=== PATIENT | male | born 1990 | race Caucasian/White ===

== ENCOUNTER 2016-12-09 18:59 | Emergency (ER) | payer SELFPAY ==
--- NOTE | 2016-12-09 20:08 | ED ---
General Adult HPI - General Chief complaint: Chest Pain Stated complaint: lung pain/hip pain Time Seen by Provider: 12/09/16 19:27 Source: patient, RN notes reviewed, old records reviewed Mode of arrival: ambulatory Limitations: no limitations - History of Present Illness Initial comments: If complaint history of present is a 26-year-old male who reports for one week and having discomfort to the right side of his chest. Pain increases with movement of the right arm palpation of the chest deep breathing and coughing. Denies any fever. - Related Data Previous Rx's Medication Instructions Recorded Ibuprofen [Motrin] 800 mg PO Q8HR PRN #20 tab 12/09/16 Allergies Allergy/AdvReac Type Severity Reaction Status Date / Time No Known Allergies Allergy Verified 12/09/16 19:27 Review of Systems ROS Statement: Those systems with pertinent positive or pertinent negative responses have been documented in the HPI. Review of systems. No headache or visual acuity changes no neck pain. Complains of discomfort to the right side of his chest which is reproducible with deep breathing twisting turning coughing and moving his right arm and palpation over the area. All systems are reviewed. Past medical problems episode costochondritis one year ago. Surgeries none. Family history hypertension and heart disease. The patient denies ALLERGIES she does smoke strongly encouraged to stop the drinks alcohol socially. ROS Other: All systems not noted in ROS Statement are negative. Past Medical History Past Medical History: No Reported History History of Any Multi-Drug Resistant Organisms: None Reported Past Surgical History: No Surgical Hx Reported Past Psychological History: ADD/ADHD Smoking Status: Current every day smoker Past Alcohol Use History: None Reported Past Drug Use History: None Reported General Exam - General Exam Comments Initial Comments: General: The patient is awake and alert, in no distress, and does not appear acutely ill. Complains of right sided chest wall pain. Reproducible by twisting turning deep breathing coughing and palpation. Vital signs show torus 98.0 pulse 87 return rate 18 pulse ox 90% room air blood pressure 123/73. 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 Re-creating motion does re-create the discomfort yesterday. Eye: Pupils are equal, round and reactive to light, extra-ocular movements are intact ; there is normal conjunctiva bilaterally. No signs of icterus. Ears, nose, mouth and throat: There are moist mucous membranes and no oral lesions. Neck: The neck is supple, there is no tenderness , no anterior cervical lymphadenopathy. Cardiovascular: There is a regular rate and rhythm. No murmur, rub or gallop is appreciated. Respiratory: Lungs are clear to auscultation, respirations are non-labored, breath sounds are equal. No wheezes, stridor, rales, or rhonchi. Deep breathing does cause discomfort to the anterior chest wall. Palpation of the right side of the chest causes pain movement of the pectoralis muscles on the right side causes pain. Gastrointestinal: Soft, non-distended, non-tender abdomen without masses or organomegaly noted. There is no rebound or guarding present. No CVA tenderness. Bowel sounds are unremarkable. Back: There is no tenderness to palpation in the midline. There is no obvious deformity. No rashes noted. Lung the right lower aspect of his back and hip area. The patient reports after chloral going through a vent then had fiberglass came out with a dozen small spots that could be local areas of irritation or even bedbug bites. This is not close to where his upper chest wall pain is Musculoskeletal: Normal ROM, no tenderness, There is no pedal edema. There is no calf tenderness or swelling. Sensation intact. Pulses equal bilaterally 2+. Neurological: No neuro deficits. Skin: Skin is warm and dry and no rashes or lesions are noted. We did discuss shingles. Limitations: no limitations Course Vital Signs 12/09/16 19:00 Temperature 98.0 F Pulse Rate 87 Respiratory 18 Rate Blood Pressure 123/73 O2 Sat by Pulse 98 Oximetry Medical Decision Making - Medical Decision Making Medical decision making; X-ray of the chest was done AP and lateral views. And reviewed by me. No acute bony irregularity appreciated. Lung markings are clear. Heart size normal limits. Diaphragm clear. No evidence of pneumothorax or pulmonary congestion or consolidation. Awaiting radiologist's final impression. The patient be treated with ibuprofen for costochondritis. Disposition Clinical Impression: Costochondritis Disposition: HOME SELF-CARE Condition: Fair Instructions: Costochondritis (ED) Additional Instructions: We discussed costochondritis and pleurisy. The discomfort is reproducible by twisting turning and palpation as well as coughing and deep breathing. The patient be placed on ibuprofen 800 mg 1 every 8 hours. Off work for the next 24 hours told take medication with food. Stop smoking. Prescriptions: Ibuprofen [Motrin] 800 mg PO Q8HR PRN #20 tab PRN Reason: Pain Referrals: None,Stated [Primary Care Provider] - 1-2 days Time of Disposition: 20:22
--- NOTE | 2016-12-09 20:20 | XR ---
EXAMINATION TYPE: XR chest 2V DATE OF EXAM: 12/09/2016 8:13 PM COMPARISON: 06/09/2015 HISTORY: Chest pain TECHNIQUE: Frontal and lateral views of the chest are obtained. FINDINGS: Heart and mediastinum are normal. Lungs are clear. Diaphragm is normal. Bony thorax and so ft tissues appear normal. IMPRESSION: Normal chest. No change.
[2016-12-09] MEDS ORDERED: IBUPROFEN 600 MG STARTER PACK 4 TAB BTL PO STA (20:21)
[2016-12-09 20:35] VITALS: BP 136/75; PULSE 80; RESP 16; TEMP 97.9
== END 2016-12-09 20:35 | disposition home or self-care (01) ==
LOC: EC 18:59
DX: M94.0 Chondrocostal junction syndrome [Tietze] (principal); F17.200 Nicotine dependence, unspecified, uncomplicated
CPT/HCPCS: 71020; 99284

== ENCOUNTER 2017-01-19 17:03 | Emergency (ER) | payer SELFPAY ==
[2017-01-19 17:08] VITALS: BP 119/79; PULSE 90; RESP 18; TEMP 97
--- NOTE | 2017-01-19 17:37 | ED ---
General Adult HPI - General Chief complaint: Recheck/Abnormal Lab/Rx Stated complaint: rib pain Time Seen by Provider: 01/19/17 17:10 Source: patient, RN notes reviewed Mode of arrival: ambulatory Limitations: no limitations - History of Present Illness Initial comments: 26-year-old male presents emergency Department chief complaint right-sided chest wall pain. Patient states he had this a month ago and states that despite became back area patient states that he does do a lot of lifting, moving his work. Patient states that it is worse with movement this time states that it feels deep on his right side. States she does have pain with deep inspiration denies any resting shortness of breath. Patient denies any palpitations. Patient denies fever, chills, cold like symptoms, rash. Patient had no nausea vomiting diarrhea constipation. Denies any abdominal pain - Related Data Previous Rx's Medication Instructions Recorded methylPREDNISolone [Medrol Dose 4 mg PO DIRECTED #1 pack 01/19/17 Pack] Allergies Allergy/AdvReac Type Severity Reaction Status Date / Time No Known Allergies Allergy Verified 01/19/17 17:36 Review of Systems ROS Statement: Those systems with pertinent positive or pertinent negative responses have been documented in the HPI. ROS Other: All systems not noted in ROS Statement are negative. Past Medical History Past Medical History: No Reported History History of Any Multi-Drug Resistant Organisms: None Reported Past Surgical History: No Surgical Hx Reported Past Psychological History: ADD/ADHD Smoking Status: Current every day smoker Past Alcohol Use History: None Reported Past Drug Use History: None Reported General Exam General appearance: alert, in no apparent distress Head exam: Present: atraumatic, normocephalic, normal inspection Neck exam: Present: normal inspection, full ROM. Absent: tenderness, meningismus, lymphadenopathy Respiratory exam: Present: normal lung sounds bilaterally, chest wall tenderness (Moderate anterior right chest wall tenderness there is no rashes noted no obvious deformity pain was increased with right arm movement). Absent : respiratory distress, wheezes, rales, rhonchi, stridor Cardiovascular Exam: Present: regular rate, normal rhythm, normal heart sounds. Absent: systolic murmur, diastolic murmur, rubs, gallop, clicks Extremities exam: Present: normal inspection, full ROM, normal capillary refill. Absent: tenderness, pedal edema, joint swelling, calf tenderness Back exam: Present: full ROM. Absent: tenderness, paraspinal tenderness, vertebral tenderness Neurological exam: Present: alert, oriented X3, CN II-XII intact, reflexes normal. Absent: motor sensory deficit Skin exam: Present: warm, dry, intact, normal color. Absent: rash Course Vital Signs 01/19/17 17:04 Temperature 97.0 F L Pulse Rate 90 Respiratory 18 Rate Blood Pressure 119/79 O2 Sat by Pulse 97 Oximetry Medical Decision Making - Medical Decision Making 26-year-old male present emergency from for right side chest wall pain. It is reproducible worse with movement. States most likely related to his job. Patient was started on surgery at this time to see if it improves his symptoms. Return parameters were discussed. Disposition Clinical Impression: Chest wall pain Disposition: HOME SELF-CARE Condition: Stable Instructions: Chest Wall Pain (ED) Additional Instructions: Please return to the Emergency Department if symptoms worsen or any other concerns. Prescriptions: methylPREDNISolone [Medrol Dose Pack] 4 mg PO DIRECTED #1 pack Time of Disposition: 18:00
--- NOTE | 2017-01-19 17:55 | XR ---
EXAMINATION TYPE: XR chest 2V DATE OF EXAM: 01/19/2017 5:40 PM COMPARISON: 12/09/2016 HISTORY: Shortness of breath TECHNIQUE: Frontal and lateral views of the chest are obtained. FINDINGS: There is no focal air space opacity, pleural effusion, or pneumothorax seen. The cardiac silhouette size is within normal limits. The osseous structures are intact. IMPRESSION: No acute cardiopulmonary process.
== END 2017-01-19 18:20 | disposition home or self-care (01) ==
LOC: EC 17:03
DX: R07.89 Other chest pain (principal); F17.200 Nicotine dependence, unspecified, uncomplicated
CPT/HCPCS: 71020; 99283

== ENCOUNTER 2017-02-09 20:54 | Emergency (ER) | payer SELFPAY ==
[2017-02-09 21:17] VITALS: BP 149/71; PULSE 107; RESP 18; TEMP 98
--- NOTE | 2017-02-09 21:31 | ED ---
General Adult HPI - General Chief complaint: Dental/Oral Stated complaint: Dental Pain Time Seen by Provider: 02/09/17 21:19 Source: patient, RN notes reviewed Mode of arrival: ambulatory Limitations: no limitations - History of Present Illness Initial comments: This is a 26-year-old male who presents with dental pain 10 days. Patient states he has pain to an upper left tooth and also to a bottom right tooth. Patient denies any facial swelling but states pain radiates to his ears. Patient denies any drainage, nausea/vomiting/diarrhea, fever/chills. Patient has not taken anything for the pain and patient has not been on any recent antibiotics. Patient states he does not have a dentist.Patient denies any recent fever, chills, shortness breath, chest pain, abdominal pain, nausea/ vomiting/diarrhea, back pain, numbness, tingling, hematuria, headache, or visual changes, or any other complaints. - Related Data Previous Rx's Medication Instructions Recorded Penicillin V Potassium [Pen Vee K] 500 mg PO QID 7 Days 02/09/17 traMADol HCL [Ultram] 50 mg PO Q6HR #12 tab 02/09/17 Allergies Allergy/AdvReac Type Severity Reaction Status Date / Time No Known Allergies Allergy Verified 02/09/17 21:17 Review of Systems ROS Statement: Those systems with pertinent positive or pertinent negative responses have been documented in the HPI. ROS Other: All systems not noted in ROS Statement are negative. Past Medical History Past Medical History: No Reported History History of Any Multi-Drug Resistant Organisms: None Reported Past Surgical History: No Surgical Hx Reported Past Psychological History: ADD/ADHD Smoking Status: Current every day smoker Past Alcohol Use History: None Reported Past Drug Use History: None Reported General Exam - General Exam Comments Initial Comments: General: The patient is awake and alert, in no distress, and does not appear acutely ill. Eye: Pupils are equal, round and reactive to light, extra-ocular movements are intact. No pain with extraocular movements. No nystagmus. There is normal conjunctiva bilaterally. No signs of icterus. Ears: TMs pink and pearly with intact cone of light bilaterally. Normal external ear canals Nose: Nasal turbinates pink and moist Mouth and throat: Poor dental hygiene. There is tenderness to palpation of tooth #31 and tooth #12. There is no surrounding erythema, swelling or purulent drainage. There are moist mucous membranes and no oral lesions. Neck: Submandibular lymph nodes present. The neck is supple, there is no tenderness or JVD. Cardiovascular: There is a regular rate and rhythm. No murmur, rub or gallop is appreciated. Respiratory: Lungs are clear to auscultation, respirations are non-labored, breath sounds are equal. No wheezes, stridor, rales, or rhonchi. Musculoskeletal: Normal ROM, no tenderness. Strength 5/5. Sensation intact. Radial pulses equal bilaterally 2+. Neurological: A&O x 3. CN II-XII intact, There are no obvious motor or sensory deficits. Coordination appears grossly intact. Speech is normal. Skin: Skin is warm and dry and no rashes or lesions are noted. Psychiatric: Cooperative, appropriate mood & affect, normal judgment. Limitations: no limitations Course Vital Signs 02/09/17 21:13 Temperature 98.0 F Pulse Rate 107 H Respiratory 18 Rate Blood Pressure 149/71 O2 Sat by Pulse 97 Oximetry Medical Decision Making - Medical Decision Making This is a 26-year-old male presents with dental pain 10 days. On physical exam patient is afebrile in the EC. Poor dental hygiene. There is tenderness to palpation of tooth #31 and tooth #12. There is no surrounding erythema, swelling or purulent drainage. There are moist mucous membranes and no oral lesions. I discussed the patient will be put on a course of Pen-Vee K and that he should take Tylenol and Motrin for pain. I discussed tramadol for breakthrough pain. I discussed the importance of following up with a dentist for this pain. I discussed return parameters.Discussed that patient should follow up with PCP in one to 2 days or return to the EC for any worsening symptoms or for any further concerns. Patient was receptive to this plan and patient will be discharged home. Disposition Clinical Impression: Pain, dental Disposition: HOME SELF-CARE Condition: Good Instructions: Toothache (ED) Additional Instructions: Please use antibiotics as prescribed. Please use pain medication as prescribed. May use [id number] Tylenol or Motrin for pain as well. Use warm compresses to the area for pain. Please follow-up with dentist as soon as possible.[facility] dental plan: [address] [place] [address] , . [employer]: Have to pay $50 for x-rays and the rest is covered. [phone]. Please follow up with PCP tomorrow or return to the EC for any worsening symptoms or for any further concerns. Prescriptions: Penicillin V Potassium [Pen Vee K] 500 mg PO QID 7 Days traMADol HCL [Ultram] 50 mg PO Q6HR #12 tab Referrals: None,Stated [Primary Care Provider] - 1-2 days Rossi Blount MD [STAFF PHYSICIAN] - 1-2 days Time of Disposition: 21:31
== END 2017-02-09 21:43 | disposition home or self-care (01) ==
LOC: EC 20:54
DX: K08.89 Other specified disorders of teeth and supporting structures (principal); F17.200 Nicotine dependence, unspecified, uncomplicated
CPT/HCPCS: 99282

== ENCOUNTER 2018-02-19 21:49 | Emergency (ER) | payer OTHER ==
[2018-02-19 21:52] VITALS: BP 118/67; PULSE 121; RESP 18; TEMP 98.4
--- NOTE | 2018-02-19 22:33 | ED ---
ENT HPI - General Chief complaint: Dental/Oral Stated complaint: dental pain Time Seen by Provider: 02/19/18 21:53 Source: patient, RN notes reviewed Mode of arrival: ambulatory Limitations: no limitations - History of Present Illness Initial comments: This is a 27-year-old male who presents to the emergency department with chief complaint of dental pain. Patient states that prior to arrival, while at work he chipped a left upper tooth. Denies any specific injury or trauma. He states that he feels like the area surrounding the tooth is infected. He states that he does not have a dentist to follow up with. Denies radiation of pain to jaw or neck. Denies fevers or chills, abdominal pain, nausea or vomiting. Denies any active drainage. - Related Data Previous Rx's Medication Instructions Recorded Penicillin V Potassium [Pen Vee K] 500 mg PO QID 7 Days tab 02/09/17 traMADol HCL [Ultram] 50 mg PO Q6HR #12 tab 02/09/17 Ibuprofen 600 mg PO Q6HR #30 tablet 02/19/18 Penicillin V Potassium [Pen Vee K] 500 mg PO QID 10 Days tab 02/19/18 Allergies Allergy/AdvReac Type Severity Reaction Status Date / Time No Known Allergies Allergy Verified 02/19/18 21:52 Review of Systems ROS Statement: Those systems with pertinent positive or pertinent negative responses have been documented in the HPI. ROS Other: All systems not noted in ROS Statement are negative. Past Medical History Past Medical History: No Reported History History of Any Multi-Drug Resistant Organisms: None Reported Past Surgical History: No Surgical Hx Reported Past Psychological History: ADD/ADHD Smoking Status: Current every day smoker Past Alcohol Use History: Occasional Past Drug Use History: Marijuana General Exam - General Exam Comments Initial Comments: General: Awake and alert, well-developed; in no apparent distress. HEENT: Head atraumatic, normocephalic. Pupils are equal, round and reactive to light. Extraocular movements intact. Oropharynx moist without erythema or exudate. Tooth #12 is fractured. Gumline surrounding this tooth is tender on palpation. There is a small pustule noted superior to the fractured tooth. No active drainage. Neck: Supple. Normal ROM. Cardiovascular: Regular rate and rhythm. No murmurs, rubs or gallops. Chest symmetrical. Respiratory: Lungs clear to auscultation bilaterally. No wheezes, rales or rhonchi. Normal respiratory effort with no use of accessory muscles. Musculoskeletal: Normal ROM, no tenderness bilateral upper and lower extremities. Ambulating normally. Skin: [place], warm and dry without rashes or lesions. Neurological: Alert and oriented x3. CN II-XII grossly intact. Speech is fluent and answers are appropriate. No focal neuro deficits. Limitations: no limitations Course Vital Signs 02/19/18 21:50 Temperature 98.4 F Pulse Rate 121 H Respiratory 18 Rate Blood Pressure 118/67 O2 Sat by Pulse 97 Oximetry Procedures - Incision & Drainage Consent Obtained: verbal consent Indication: abscess Site: oral (left upper gumline ) Size (cm): 1 Needle Aspiration Performed?: Yes I&D Drainage Obtained: Pus, Blood Culture Obtained?: No Patient Tolerated Procedure: well, no complications Medical Decision Making - Medical Decision Making This is a 27-year-old male who presents to the emergency department with chief complaint of dental pain. Tooth #12 is fractured. There is tenderness along gumline. A small pustule is noted superior to the cracked tooth. I&D was performed with a 21-gauge needle. This was successful and pus and blood were obtained. Patient will be started on antibiotics and ibuprofen 600 mg. He will be given contact information for follow-up to dentist. Vital signs are stable and he is in no acute distress. He'll be discharged home. He is in agreement with plan and voices understanding. All questions were answered. Disposition Clinical Impression: Fracture of tooth Disposition: HOME SELF-CARE Condition: Good Instructions: Toothache (ED) Additional Instructions: Please take medications as prescribed. Please apply warm compresses. Please follow up with primary care provider within 1-2 days. Return to emergency department if symptoms should worsen or any concerns arise. Please follow up with the [facility] dental clinic. [facility] [place] [address]. Phone number for new patients or [phone] for existing patients. Prescriptions: Ibuprofen 600 mg PO Q6HR #30 tablet Penicillin V Potassium [Pen Vee K] 500 mg PO QID 10 Days tab Referrals: None,Stated [Primary Care Provider] - 1-2 days Time of Disposition: 22:36
== END 2018-02-19 22:39 | disposition home or self-care (01) ==
LOC: EC 21:49
DX: S02.5XXA Fracture of tooth (traumatic), initial encounter for closed fracture (principal); F17.200 Nicotine dependence, unspecified, uncomplicated; W22.8XXA Striking against or struck by other objects, initial encounter; Y99.0 Civilian activity done for income or pay; Y93.89 Activity, other specified
CPT/HCPCS: 41800; 99282

== ENCOUNTER 2020-07-06 13:03 | Emergency (ER) | payer OTHER ==
[2020-07-06 13:26] VITALS: PULSE 113; RESP 18
[2020-07-06] MEDS ORDERED: cefTRIAXone IN SWFI 1,000 MG/10 ML SYRINGE IVP STA (14:04)
--- NOTE | 2020-07-06 14:10 | ED ---
ENT HPI - General Chief complaint: Dental/Oral Stated complaint: Mouth/Throat Pain Time Seen by Provider: 07/06/20 13:41 Source: patient Mode of arrival: ambulatory Limitations: no limitations - History of Present Illness Initial comments: Patient is a 29-year-old male presenting to the emergency department with a chief complaint of toe pain. Patient reports that 3 days ago he "popped" it dental abscess. Patient reports over the last 2 days he has developed a sore throat with dysphagia and odynophagia. He does report some right-sided facial swelling and swelling along the right side of his neck. Patient states he has increased fatigue over the last few days. States she has not been able to have any solid foods over the last few days. States he is barely drinking any fluids either. Not diabetic. Has not been taking any medication to alleviate his symptoms. Denies any changes to his voice or drooling. Denies any fevers but does report chills. States the pain is going into the right side of his face and head. States she has not been able to sleep due to the pain. - Related Data Previous Rx's Medication Instructions Recorded Penicillin V Potassium [Pen Vee K] 500 mg PO QID 7 Days tab 02/09/17 traMADol HCL [Ultram] 50 mg PO Q6HR #12 tab 02/09/17 Ibuprofen 600 mg PO Q6HR #30 tablet 02/19/18 Penicillin V Potassium [Pen Vee K] 500 mg PO QID 10 Days tab 02/19/18 Cephalexin [Keflex] 500 mg PO Q6HR 5 Days #20 cap 02/19/19 Amoxicillin/Potassium Clav 1 tab PO Q12HR #20 tab 07/06/20 [Augmentin 875-125 Tablet] Allergies Allergy/AdvReac Type Severity Reaction Status Date / Time No Known Allergies Allergy Verified 07/06/20 13:26 Review of Systems ROS Statement: Those systems with pertinent positive or pertinent negative responses have been documented in the HPI. ROS Other: All systems not noted in ROS Statement are negative. Past Medical History Past Medical History: No Reported History History of Any Multi-Drug Resistant Organisms: None Reported Past Surgical History: No Surgical Hx Reported Past Psychological History: ADD/ADHD Smoking Status: Current every day smoker Past Alcohol Use History: Occasional Past Drug Use History: None Reported General Exam Limitations: no limitations General appearance: alert, in no apparent distress Head exam: Present: atraumatic, normocephalic, normal inspection Eye exam: Present: normal appearance, PERRL, EOMI Pupils: Present: normal accommodation ENT exam: Present: normal exam, normal oropharynx (Bilateral tonsillar erythema, enlargement and exudates. Right> left.), mucous membranes moist, TM's normal bilaterally, normal external ear exam Neck exam: Present: normal inspection, full ROM, lymphadenopathy (anterior cervical) Respiratory exam: Present: normal lung sounds bilaterally. Absent: respiratory distress Cardiovascular Exam: Present: regular rate, normal rhythm, normal heart sounds Extremities exam: Present: normal inspection, full ROM. Absent: tenderness Back exam: Present: normal inspection, full ROM. Absent: tenderness Neurological exam: Present: alert, oriented X3 Psychiatric exam: Present: normal affect, normal mood Skin exam: Present: warm, dry, intact, normal color Course Vital Signs 07/06/20 07/06/20 07/06/20 13:20 15:37 16:31 Temperature 100.6 F H 101.3 F H 100.0 F H Pulse Rate 113 H 113 H Respiratory 18 18 Rate Blood Pressure 136/79 104/67 O2 Sat by Pulse 98 97 Oximetry Medical Decision Making - Medical Decision Making Patient is a 29-year-old male presenting to the emergency room with a chief complaint of dental pain. On exam patient has moderate to large right anterior cervical lymphadenopathy. On exam he also has enlarged, erythematous tonsils bilaterally with exudates. No visual signs of periapical abscess. He does have poor dentition. Patient was febrile on initial exam and tachycardic. Laboratory workup initiated showing leukocytosis of 16.4. Lactic within normal limits. Rapid strep negative but culture is pending. CT of the soft tissue neck reveals complete erosion of the right mandibular second molar crown with a 1.1 cm periapical abscess. Asymmetrical soft tissue thickening overlying the region with some residual inflammatory tissues. Abnormal, asymmetric right upper cervical if not measuring up to 1.9 cm. Tycubxip-lm-ikgfev hypertrophy of the bilateral palatine and lingual tonsils. Patient given Rocephin and Unasyn in the emergency department. Patient will be discharged at 10 day course of Augmentin. Patient is otherwise healthy and not diabetic or immunocompromised. Patient advised to follow-up with an ENT specialist. Strict return parameters were thoroughly discussed the patient's worsening agreeable. Case discussed physician. - Lab Data Result diagrams: 07/06/20 14:33 07/06/20 14:33 Lab Results 07/06/20 07/06/20 07/06/20 Range/Units 14:33 14:33 14:33 WBC 16.3 H (3.8-10.6) k/uL RBC 4.96 (4.30-5.90) m/uL Hgb 15.8 (13.0-17.5) gm/dL Hct 47.5 (39.0-53.0) % MCV 95.7 (80.0-100.0) fL MCH 31.9 (25.0-35.0) pg MCHC 33.3 (31.0-37.0) g/dL RDW 12.5 (11.5-15.5) % Plt Count 177 (150-450) k/uL Neutrophils % 72 % Lymphocytes % 9 % Monocytes % 14 % Eosinophils % 1 % Basophils % 2 % Neutrophils # 11.6 H (1.3-7.7) k/uL Lymphocytes # 1.5 (1.0-4.8) k/uL Monocytes # 2.3 H (0-1.0) k/uL Eosinophils # 0.1 (0-0.7) k/uL Basophils # 0.3 H (0-0.2) k/uL Sodium 134 L (137-145) mmol/L Potassium 5.2 H (3.5-5.1) mmol/L Chloride 99 (98-107) mmol/L Carbon Dioxide 27 (22-30) mmol/L Anion Gap 8 mmol/L BUN 8 L (9-20) mg/dL Creatinine 0.87 (0.66-1.25) mg/dL Est GFR (CKD-EPI)AfAm >90 (>60 ml/min/1.73 sqM) Est GFR (CKD-EPI)NonAf >90 (>60 ml/min/1.73 sqM) Glucose 103 H (74-99) mg/dL Plasma Lactic Acid Momo 1.3 (0.7-2.0) mmol/L Calcium 9.4 (8.4-10.2) mg/dL Total Bilirubin 0.6 (0.2-1.3) mg/dL AST 29 (17-59) U/L ALT 14 (4-49) U/L Alkaline Phosphatase 68 (38-126) U/L Total Protein 7.4 (6.3-8.2) g/dL Albumin 4.6 (3.5-5.0) g/dL Group A Strep Rapid (Negative) 07/06/20 Range/Units 14:33 WBC (3.8-10.6) k/uL RBC (4.30-5.90) m/uL Hgb (13.0-17.5) gm/dL Hct (39.0-53.0) % MCV (80.0-100.0) fL MCH (25.0-35.0) pg MCHC (31.0-37.0) g/dL RDW (11.5-15.5) % Plt Count (150-450) k/uL Neutrophils % % Lymphocytes % % Monocytes % % Eosinophils % % Basophils % % Neutrophils # (1.3-7.7) k/uL Lymphocytes # (1.0-4.8) k/uL Monocytes # (0-1.0) k/uL Eosinophils # (0-0.7) k/uL Basophils # (0-0.2) k/uL Sodium (137-145) mmol/L Potassium (3.5-5.1) mmol/L Chloride (98-107) mmol/L Carbon Dioxide (22-30) mmol/L Anion Gap mmol/L BUN (9-20) mg/dL Creatinine (0.66-1.25) mg/dL Est GFR (CKD-EPI)AfAm (>60 ml/min/1.73 sqM) Est GFR (CKD-EPI)NonAf (>60 ml/min/1.73 sqM) Glucose (74-99) mg/dL Plasma Lactic Acid Momo (0.7-2.0) mmol/L Calcium (8.4-10.2) mg/dL Total Bilirubin (0.2-1.3) mg/dL AST (17-59) U/L ALT (4-49) U/L Alkaline Phosphatase (38-126) U/L Total Protein (6.3-8.2) g/dL Albumin (3.5-5.0) g/dL Group A Strep Rapid Negative (Negative) Disposition Clinical Impression: Periapical abscess, Lymphadenopathy, anterior cervical, Enlarged tonsils Disposition: HOME SELF-CARE Condition: Good Instructions (If sedation given, give patient instructions): Dental Abscess (ED) Additional Instructions: Follow-up with an ENT specialist. Take her medication as directed. Return to emergency department if symptoms worsen. Prescriptions: Amoxicillin/Potassium Clav [Augmentin 875-125 Tablet] 1 tab PO Q12HR #20 tab Is patient prescribed a controlled substance at d/c from ED?: No Referrals: None,Stated [Primary Care Provider] - 1-2 days Elias Delarosa DO [Doctor of Osteopathic Medicine] - 1-2 days Time of Disposition: 15:34
[2020-07-06] MEDS ORDERED: ACETAMINOPHEN TAB 500 MG TAB PO STA (14:56)
[2020-07-06 15:07] LABS: ALT 14 U/L (4-49); AST 29 U/L (17-59); African American GFR (CKD) >90 (>60 ml/min/1.73 sqM); Albumin 4.6 g/dL (3.5-5.0); Alkaline Phosphatase 68 U/L (38-126); Anion Gap 8 mmol/L; Blood Urea Nitrogen 8 mg/dL (9-20); Calcium 9.4 mg/dL (8.4-10.2); Carbon Dioxide 27 mmol/L (22-30); Chloride 99 mmol/L (98-107); Glucose 103 mg/dL (74-99); Non-African American GFR(CKD) >90 (>60 ml/min/1.73 sqM); Potassium 5.2 mmol/L (3.5-5.1); Sodium 134 mmol/L (137-145); Total Bilirubin 0.6 mg/dL (0.2-1.3); Total Protein 7.4 g/dL (6.3-8.2)
[2020-07-06 15:08] LABS: Basophils # (A) 0.3 k/uL (0-0.2); Basophils % (A) 2 %; Eosinophils # (A) 0.1 k/uL (0-0.7); Eosinophils % (A) 1 %; HCT 47.5 % (39.0-53.0); HGB 15.8 gm/dL (13.0-17.5); Lymphocytes # (A) 1.5 k/uL (1.0-4.8); Lymphocytes % (A) 9 %; MCH 31.9 pg (25.0-35.0); MCHC 33.3 g/dL (31.0-37.0); MCV 95.7 fL (80.0-100.0); Mean Platelet Volume 7.5; Monocytes # (A) 2.3 k/uL (0-1.0); Monocytes % (A) 14 %; Neutrophils # (A) 11.6 k/uL (1.3-7.7); Neutrophils % (A) 72 %; Platelet Count 177 k/uL (150-450); RBC 4.96 m/uL (4.30-5.90); RDW 12.5 % (11.5-15.5); WBC 16.3 k/uL (3.8-10.6)
--- NOTE | 2020-07-06 15:13 | CT ---
EXAMINATION TYPE: CT soft tissue neck w con DATE OF EXAM: 07/06/2020 COMPARISON: None HISTORY: 29-year-old male pain, anterior cervical lymph nodes, recent Dental abscess on right side TECHNIQUE: Contiguous axial scanning of the soft tissues of the neck performed with IV Contrast, christian ent injected with 100 mL of Isovue 300. Coronal/sagittal reconstructions performed. CT DLP: 247.1 mGycm Automated exposure control for dose reduction was used. FINDINGS: Visualized intracranial structures, orbits and globes, and mastoid air cells appear clear. Scattered mild mucosal thickening throughout the ethmoid air cells and maxillary sinuses. Nasopharynx appears grossly clear. Moderate bilateral palatine tonsillar hypertrophy narrowing the upper oropharynx. Prominent bilateral lingual tonsillar hypertrophy also noted. Epiglottis and prevertebral soft tissues within normal limits. Glottic and subglottic structures as well as the tracheal column and visualized upper lungs are clear . Thyroid and submandibular glands are satisfactory. The bilateral parotid glands are atrophic. There is some annular space lymphadenopathy, right greater than left measuring up to 1.3 cm. Station 2A cervical lymphadenopathy, right greater than left measuring up to 1.9 cm. Additional scattered prominent but nonenlarged lymph nodes in both sides of the mid and lower neck. There is complete erosion of the crown of the right mandibular second molar with prominent 1.1 cm per iapical lucency. Slight asymmetric overlying soft tissue thickening. No discrete abscesses identified. IMPRESSION: 1. COMPLETE EROSION OF THE RIGHT MANDIBULAR SECOND MOLAR CROWN WITH A 1.1 CM PERIAPICAL ABSCESS. ASYM METRIC SOFT TISSUE THICKENING OVERLYING THIS REGION COULD REPRESENT SOME RESIDUAL INFLAMMATION/SOFT T ISSUE INFECTION. NO DISCRETE ABSCESS IS SEEN. 2. ABNORMAL ASYMMETRIC RIGHT UPPER CERVICAL LYMPHADENOPATHY MEASURING UP TO 1.9 CM SHORT AXIS. THESE LYMPH NODES SHOULD BE FOLLOWED CLINICALLY TO ENSURE REACTIVE RATHER THAN NEOPLASTIC LYMPHADENOPATHY. IF ANY PERSISTENCE OR ENLARGEMENT IS NOTED, EXCISIONAL BIOPSY CAN BE CONSIDERED. 3. MODERATE TO MARKED HYPERTROPHY OF THE BILATERAL PALATINE AND LINGUAL TONSILS. THIS MAY REFLECT LYM PHOID HYPERTROPHY. CORRELATE WITH DIRECT INSPECTION.
[2020-07-06] MEDS ORDERED: AMPICILLIN-SULBACTAM 1.5 GM in SODIUM CHLORIDE 0.9% 50 ML IVPB STA (15:28)
[2020-07-06 15:39] VITALS: BP 104/67
[2020-07-06 16:33] VITALS: TEMP 100
== END 2020-07-06 16:32 | disposition home or self-care (01) ==
LOC: EC 13:03
DX: K04.7 Periapical abscess without sinus (principal); R59.1 Generalized enlarged lymph nodes; J35.1 Hypertrophy of tonsils; F17.200 Nicotine dependence, unspecified, uncomplicated; K00.7 Teething syndrome; D72.829 Elevated white blood cell count, unspecified; R50.9 Fever, unspecified
CPT/HCPCS: 36415; 80053; 83605; 85025; 87040; 87081; 87430; 70491; 99284; 96365; 96375; J0696; J0295; Q9967

== ENCOUNTER 2021-01-02 10:46 | Emergency (ER) | payer OTHER ==
[2021-01-02 10:51] VITALS: RESP 18; TEMP 97.6
--- NOTE | 2021-01-02 11:03 | ED ---
General Adult HPI - General Chief complaint: Recheck/Abnormal Lab/Rx Stated complaint: Left side Rib injury Time Seen by Provider: 01/02/21 10:52 Source: patient, RN notes reviewed Mode of arrival: ambulatory Limitations: no limitations - History of Present Illness Initial comments: This a 30-year-old male presents emergency Department with chief complaint of left-sided rib pain. Patient states he was chidi a week ago states he slipped injuring left side of his ribs. Patient states he felt like he just broke a rib but states that has not improved over the last 1 week. He states it hurts to take deep breath does not have any shortness of breath at rest. No head injury no loss consciousness no other injuries. - Related Data Previous Rx's Medication Instructions Recorded Ibuprofen [Motrin] 600 mg PO Q8HR PRN #20 tab 01/02/21 Allergies Allergy/AdvReac Type Severity Reaction Status Date / Time No Known Allergies Allergy Verified 01/02/21 11:06 Review of Systems ROS Statement: Those systems with pertinent positive or pertinent negative responses have been documented in the HPI. ROS Other: All systems not noted in ROS Statement are negative. Past Medical History Past Medical History: No Reported History History of Any Multi-Drug Resistant Organisms: None Reported Past Surgical History: No Surgical Hx Reported Past Psychological History: ADD/ADHD Smoking Status: Current every day smoker Past Alcohol Use History: Occasional Past Drug Use History: Marijuana General Exam Limitations: no limitations General appearance: alert, in no apparent distress Head exam: Present: atraumatic, normocephalic, normal inspection Eye exam: Present: normal appearance, PERRL, EOMI. Absent: scleral icterus, conjunctival injection, periorbital swelling ENT exam: Present: normal exam, normal oropharynx, mucous membranes moist Neck exam: Present: normal inspection, full ROM. Absent: tenderness, meningismus, lymphadenopathy Respiratory exam: Present: normal lung sounds bilaterally, chest wall tenderness (Moderate left-sided), decreased breath sounds. Absent: respiratory distress, wheezes, rales, rhonchi, stridor Cardiovascular Exam: Present: regular rate, normal rhythm, normal heart sounds. Absent: systolic murmur, diastolic murmur, rubs, gallop, clicks GI/Abdominal exam: Present: soft, normal bowel sounds. Absent: distended, tenderness, guarding, rebound, rigid Course Vital Signs 01/02/21 10:49 Temperature 97.6 F Pulse Rate 94 Respiratory 18 Rate Blood Pressure 126/74 O2 Sat by Pulse 99 Oximetry Medical Decision Making - Medical Decision Making X-ray shows evidence of seventh and eighth rib fracture, known with direct. Patient is mildly stable be discharged in stable condition return parameters were discussed. Disposition Clinical Impression: Fracture of rib of left side Disposition: HOME SELF-CARE Condition: Stable Instructions (If sedation given, give patient instructions): Rib Fracture (ED) Additional Instructions: Please return to the Emergency Department if symptoms worsen or any other concerns. Prescriptions: Ibuprofen [Motrin] 600 mg PO Q8HR PRN #20 tab PRN Reason: Pain Is patient prescribed a controlled substance at d/c from ED?: No Referrals: None,Stated [Primary Care Provider] - 1-2 days Time of Disposition: 12:10
--- NOTE | 2021-01-02 12:07 | XR ---
EXAMINATION TYPE: XR ribs LT w pa chest xray DATE OF EXAM: 01/02/2021 CLINICAL HISTORY: Chest and left-sided rib pain. TECHNIQUE: Single frontal view of the chest is obtained. A final plate images left-sided ribs. COMPARISON: Chest x-ray January 19, 2017 FINDINGS: There is no suspicious new focal air space opacity, pleural effusion, or pneumothorax seen . The cardiac silhouette size remains within normal limits. The osseous structures are intact. Dedicated images of the left-sided ribs show acute minimally displaced anterolateral left eighth rib fracture. There is slight cortical step-off consistent with additional acute minimally displaced frac ture of the anterolateral left seventh rib. IMPRESSION: 1. No acute cardiopulmonary process. 2. Acute minimally displaced fractures involving the anterolateral left seventh and eighth ribs. Sharon elate for recent trauma or injury.
[2021-01-02] MEDS ORDERED: ACET/COD 300 MG/30 MG STARTER PACK 6 TAB BTL PO STA (12:10)
[2021-01-02 12:28] VITALS: BP 125/76; PULSE 73
== END 2021-01-02 12:28 | disposition home or self-care (01) ==
LOC: EC 10:46
DX: S22.32XA Fracture of one rib, left side, initial encounter for closed fracture (principal); F17.200 Nicotine dependence, unspecified, uncomplicated; W01.0XXA Fall on same level from slipping, tripping and stumbling without subsequent striking against object, initial encounter; Y92.69 Other specified industrial and construction area as the place of occurrence of the external cause; Y99.0 Civilian activity done for income or pay
CPT/HCPCS: 99283

== ENCOUNTER 2021-06-07 12:11 | Emergency (ER) | payer OTHER ==
[2021-06-07 12:23] VITALS: BP 123/76; PULSE 111; RESP 20; TEMP 97.6
[2021-06-07] MEDS ORDERED: KETOROLAC 15 MG/ML 1 ML VIAL IM STA (12:44)
--- NOTE | 2021-06-07 12:46 | ED ---
General Adult HPI - General Chief complaint: Extremity Injury, Lower Stated complaint: L Knee Pain Time Seen by Provider: 06/07/21 12:40 Source: patient, RN notes reviewed, old records reviewed Mode of arrival: wheelchair Limitations: no limitations - History of Present Illness Initial comments: [age]-year-old male presenting with left knee pain. Patient had then wrestling around yesterday evening. He believes that his knee was twisted while wrestling or may have had some 1% on his knee. He was drinking alcohol this time does not remember the exact events. He denies any calf pain or ankle pain. No numbness or tingling. Pain is isolated to the lateral aspect of the left knee. No other injuries reported. - Related Data Previous Rx's Medication Instructions Recorded Ibuprofen [Motrin] 600 mg PO Q8HR PRN #20 tab 01/02/21 Ibuprofen [Motrin] 600 mg PO Q8HR PRN #24 tab 06/07/21 Allergies Allergy/AdvReac Type Severity Reaction Status Date / Time No Known Allergies Allergy Verified 06/07/21 12:22 Review of Systems ROS Statement: Those systems with pertinent positive or pertinent negative responses have been documented in the HPI. ROS Other: All systems not noted in ROS Statement are negative. Past Medical History Past Medical History: No Reported History History of Any Multi-Drug Resistant Organisms: None Reported Past Surgical History: No Surgical Hx Reported Past Psychological History: ADD/ADHD Smoking Status: Current every day smoker Past Alcohol Use History: Occasional Past Drug Use History: Marijuana General Exam Limitations: no limitations General appearance: alert, in no apparent distress Head exam: Present: atraumatic, normocephalic Eye exam: Present: normal appearance, PERRL ENT exam: Present: normal exam Neck exam: Present: normal inspection. Absent: tenderness, meningismus Respiratory exam: Present: normal lung sounds bilaterally. Absent: respiratory distress, wheezes Cardiovascular Exam: Present: regular rate, normal rhythm GI/Abdominal exam: Present: soft. Absent: distended, tenderness Extremities exam: Present: tenderness, normal capillary refill, other (2+ distal pulses in the left lower extremity, no external signs of trauma, no large joint effusion on exam.). Absent: full ROM, joint swelling Neurological exam: Present: alert, oriented X3, CN II-XII intact. Absent: motor sensory deficit Psychiatric exam: Present: normal affect, normal mood Skin exam: Present: warm, dry, intact Course Vital Signs 06/07/21 12:21 Temperature 97.6 F Pulse Rate 111 H Respiratory 20 Rate Blood Pressure 123/76 O2 Sat by Pulse 98 Oximetry Medical Decision Making - Medical Decision Making Patient had a knee injury occurred yesterday, history concerning for possible ligamentous injury, there is no large effusion on exam, pain is predominantly in the lateral aspect of the knee. X-rays negative for fracture dislocation. Patient given knee immobilizer. He will follow-up with orthopedics Disposition Clinical Impression: Knee sprain Disposition: HOME SELF-CARE Condition: Good Instructions (If sedation given, give patient instructions): Knee Sprain (ED) Prescriptions: Ibuprofen [Motrin] 600 mg PO Q8HR PRN #24 tab PRN Reason: Pain Is patient prescribed a controlled substance at d/c from ED?: No Referrals: None,Stated [Primary Care Provider] - 1-2 days Jb Aguiar MD [STAFF PHYSICIAN] - 1-2 days Time of Disposition: 13:32
--- NOTE | 2021-06-07 13:26 | XR ---
EXAMINATION TYPE: XR knee complete LT DATE OF EXAM: 06/07/2021 CLINICAL HISTORY: Trauma TECHNIQUE: Three views of the left knee are obtained. COMPARISON: None. FINDINGS: There is no acute fracture/dislocation evident in left knee. The tri-compartment joint sp aces appear within normal limits. The overlying soft tissue appears unremarkable. IMPRESSION: There is no acute fracture or dislocation in the left knee.
== END 2021-06-07 13:52 | disposition home or self-care (01) ==
LOC: EC 12:11
DX: S83.92XA Sprain of unspecified site of left knee, initial encounter (principal); F90.9 Attention-deficit hyperactivity disorder, unspecified type; F17.200 Nicotine dependence, unspecified, uncomplicated; F12.90 Cannabis use, unspecified, uncomplicated; X50.1XXA Overexertion from prolonged static or awkward postures, initial encounter; Y93.72 Activity, wrestling
CPT/HCPCS: 73562; 99283; 96372; L1830; J1885

== ENCOUNTER 2023-02-05 22:54 | Emergency (ER) | payer OTHER ==
--- NOTE | 2023-02-05 23:16 | ED ---
General Adult HPI <Michael Miranda - Last Filed: 02/05/23 23:15> - General Source: patient, RN notes reviewed Mode of arrival: wheelchair Limitations: no limitations - History of Present Illness MD Complaint: Right foot injury <Ainsley Farley - Last Filed: 02/06/23 02:29> - General Chief complaint: Extremity Injury, Lower Stated complaint: Right Foot Injury Time Seen by Provider: 02/05/23 23:15 - History of Present Illness Initial comments: Dictation was produced using [employer] dictation software. please excuse any grammatical, word or spelling errors. Time seen by provider: 11:15 PM, 02/05/2023 Medical screening exam: 32-year-old male presents with right lower extremity pain. Proximally 5 hours prior to arrival in the front flip when he landed awkwardly. States that he thought he initially had a sprained her wrist pain significant worsened. Main pain is in the right foot however radiates up to the mid tib-fib area. Visual Physical Exam Vital signs reviewed General: Well-appearing, nontoxic, acute distress secondary to pain Head: Normocephalic, atraumatic Eyes: PERRLA, EOMI ENT: Airway patent Chest: Nonlabored breathing Skin: No visual rash, normal skin tone Neuro: Alert and oriented 3 Musculoskeletal: No gross abnormalities (Michael Miranda) When I went to evaluate the patient, he reiterated the same history as listed above. (Ainsley Farley) - Related Data Previous Rx's Medication Instructions Recorded Ibuprofen [Motrin] 600 mg PO Q8HR PRN #20 tab 01/02/21 Ibuprofen [Motrin] 600 mg PO Q8HR PRN #24 tab 06/07/21 LORazepam [Ativan] 1 mg PO TID PRN 3 Days #9 tab 01/17/23 HYDROcodone/APAP 5-325MG [[place] 1 tab PO Q6HR PRN 3 Days #12 tab 02/06/23 5-325] Ibuprofen 600 mg PO Q6H PRN #20 tab 02/06/23 Allergies Allergy/AdvReac Type Severity Reaction Status Date / Time No Known Allergies Allergy Verified 02/05/23 23:18 Review of Systems ROS Other: All systems not noted in ROS Statement are negative. <Michael Miranda - Last Filed: 02/05/23 23:15> ROS Other: All systems not noted in ROS Statement are negative. <Ainsley Farley - Last Filed: 02/06/23 02:29> ROS Statement: Those systems with pertinent positive or pertinent negative responses have been documented in the HPI. Past Medical History Past Medical History: No Reported History History of Any Multi-Drug Resistant Organisms: None Reported Past Surgical History: No Surgical Hx Reported Past Psychological History: ADD/ADHD Smoking Status: Current every day smoker Past Alcohol Use History: Occasional Past Drug Use History: Marijuana <RuthAmandadeven Scanlon - Last Filed: 02/05/23 23:15> General Exam Limitations: no limitations General appearance: alert, in distress Head exam: Present: atraumatic, normocephalic, normal inspection Respiratory exam: Present: normal lung sounds bilaterally. Absent: respiratory distress, wheezes, rales, rhonchi, stridor Cardiovascular Exam: Present: regular rate, normal rhythm, normal heart sounds. Absent: systolic murmur, diastolic murmur, rubs, gallop, clicks Extremities exam: Present: other (Ecchymosis and swelling to the dorsal aspect of the right foot with overlying tenderness and limited passive range of motion secondary to pain. Capillary refill less than 1 second.) Neurological exam: Present: alert, oriented X3, CN II-XII intact Psychiatric exam: Present: normal affect, normal mood Skin exam: Present: warm, dry, intact <Ainsley Farley - Last Filed: 02/06/23 02:29> Course Vital Signs 02/05/23 02/06/23 23:14 02:20 Temperature 98.2 F Pulse Rate 96 86 Respiratory 20 18 Rate Blood Pressure 166/96 120/96 O2 Sat by Pulse 99 98 Oximetry Procedures - Orthopedic Splinting/Casting Injury #1 Side: right Lower Extremity Injury Location: foot Lower Extremity Immobilizer: posterior splint, stirrup splint Other Orthopedic Equipment: crutches <Ainsley Farley - Last Filed: 02/06/23 02:29> Medical Decision Making - Radiology Data Radiology results: report reviewed, image reviewed <Ainsley Farley - Last Filed: 02/06/23 02:29> - Medical Decision Making This is a 32-year-old male who presents to the emergency department for a right foot injury. Was pt. sent in by a medical professional or institution? @ -No Did you speak to anyone other than the patient for history? @ -No Did you review nursing and triage notes? @ -Yes, and I agree, it is accurate with regards to the patient's symptoms. Were old charts reviewed? @ -No Differential Diagnosis? @ -Differential Foot Injury: Fracture, dislocation, contusion, sprain, this is not meant to be an all- inclusive list. X-rays interpreted by me (1pt min.)? @ -X-ray of the right foot, right tib-fib, and right calcaneus obtained. My interpretation identifies a nondisplaced fracture of the right calcaneus. What testing was considered but not performed? (CT, X-rays, U/S, labs)? Why? @ -None What meds were considered but not given? Why? @ -None Did you discuss the management of the patient with other professionals? @ -Yes, Dr. Chen who advised a posterior stirrup splint, crutches, and orthopedic follow up. Did you reconcile home meds? @ -No Was smoking cessation discussed for >3mins.? @ -No Was critical care preformed (if so, how long)? @ -No Were there social determinants of health that impacted care today? How? (Homel essness, low income, unemployed, alcoholism, drug addiction, transportation, low edu. Level, literacy, decrease access to med. care, fpc, rehab)? @ -No Was there de-escalation of care discussed even if they declined? (Discuss DNR or withdrawal of care, Hospice)? @ -No What co-morbidities impacted this encounter? (DM, HTN, Smoking, COPD, CAD, Cancer, CVA, Hep., AIDS, mental health diagnosis, sleep apnea, morbid obesity)? @ -None Was patient admitted / discharged? @ -Discharged. X-rays of the right foot, tib-fib, and calcaneus were obtained. Findings include a nondisplaced right calcaneus fracture. Case discussed with Dr. Chen, orthopedics, who advised that the patient can be placed in a splint, given crutches, and orthopedic follow-up. Posterior stirrup splint with generous padding was applied. Signs and symptoms of compartment syndrome reviewed. Patient given crutches and told to avoid weight bearing until given permission by orthopedics. Pain was controlled in the emergency department. Prescription for Bonsall and ibuprofen provided. He is instructed to alternate with ibuprofen and tylenol for pain relief and take the Bonsall sparingly when his pain is the most severe. I advised that the Bonsall may be sedating and he should take it at night until he knows how it affects him and avoid driving or operating machinery when taking it. Instructed him to apply ice for 15-20 minutes every 2-3 hours and keep the leg elevated. Undiagnosed new problem with uncertain prognosis? @ -None Drug Therapy requiring intensive monitoring for toxicity (Heparin, Nitro, Insulin, Cardizem)? @ -None Were any procedures done? @ -Yes, right posterior stirrup splint application. Diagnosis/symptom? @ -Right calcaneus fracture Acute, or Chronic, or Acute on Chronic? @ -Acute Uncomplicated (without systemic symptoms) or Complicated (systemic symptoms)? @ -Uncomplicated Side effects of treatment? @ -None Exacerbation, Progression, or Severe Exacerbation] @ -Not applicable Poses a threat to life or bodily function? @ -Yes, will impact his ability to walk, as he cannot bear weight on the right leg. Return precautions reviewed in depth, the patient is instructed to return to the emergency department with any new, worsening, or concerning symptoms. Patient verbalized understanding. This case was discussed in detail with the attending ED physician, Dr. Miranda. Presentation, findings, and treatment plan discussed in detail as well. (Ainsley Farley) Disposition <Michael Miranda - Last Filed: 02/05/23 23:15> Is patient prescribed a controlled substance at d/c from ED?: Yes When asked, does pt state using other controlled substances?: No If prescribed controlled substance>3 days was MAPS reviewed?: Prescribed <3 Days <Ainsley Farley - Last Filed: 02/06/23 02:29> Clinical Impression: Right calcaneal fracture Disposition: HOME SELF-CARE Instructions (If sedation given, give patient instructions): Calcaneal Fracture (ED), Splint Care (ED) Additional Instructions: Return to the emergency department with any new, worsening, or concerning symptoms. Use the crutches and do not put any weight on the right foot. Apply ice for 15-20 minutes every 2-3 hours and keep the foot elevated. Take the Bonsall sparingly when your pain is the most severe. Contact orthopedics first thing tomorrow morning and let them know that you were seen in the emergency department and were told to follow up as soon as possible for a right calcaneal fracture. Follow up with your primary care provider in 1-2 days. Prescriptions: Ibuprofen 600 mg PO Q6H PRN #20 tab PRN Reason: Pain HYDROcodone/APAP 5-325MG [[place] 5-325] 1 tab PO Q6HR PRN 3 Days #12 tab PRN Reason: Pain Referrals: Yfn Gil MD [Primary Care Provider] - 1-2 days Ebenezer Chen DO [Doctor of Osteopathic Medicine] - 1-2 days
[2023-02-05 23:18] VITALS: TEMP 98.2
[2023-02-05] MEDS ORDERED: MORPHINE SULFATE 4 MG/ML SYRINGE IM STA (23:18)
[2023-02-05] MEDS ORDERED: KETOROLAC 15 MG/ML 1 ML VIAL IM STA (23:50)
--- NOTE | 2023-02-06 00:16 | XR ---
EXAMINATION TYPE: XR foot complete RT DATE OF EXAM: 02/05/2023 COMPARISON: NONE HISTORY: Pain TECHNIQUE: 3 views FINDINGS: The metatarsals are intact. There is a nondisplaced fracture through the posterior calcaneu s. Fracture line extends anteriorly to the calcaneal cuboidal joint. The toes are intact. The midfoot is intact. IMPRESSION: Nondisplaced calcaneal fracture.
--- NOTE | 2023-02-06 00:18 | XR ---
EXAMINATION TYPE: XR tibia fibula RT DATE OF EXAM: 02/05/2023 COMPARISON: NONE HISTORY: Pain TECHNIQUE: 4 views FINDINGS: The tibia and fibula appear intact. No evidence of fracture nor dislocation of the knee alex nt and ankle joint. There are small exostosis on the medial femoral condyle. As metallic rounded fore ign body in the mid calf soft tissue posteriorly. IMPRESSION: No acute abnormality of the right tibia and fibula. There is BB metallic foreign body in the calf muscle in the mid lower leg.
--- NOTE | 2023-02-06 00:19 | XR ---
EXAMINATION TYPE: XR calcaneus 2V RT DATE OF EXAM: 02/05/2023 COMPARISON: NONE HISTORY: Pain TECHNIQUE: 3 views FINDINGS: There is nondisplaced longitudinal fracture through the anterior and posterior calcaneus ex tending to the calcaneal cuboidal joint. No dislocation. The subtalar joint appears anatomic. IMPRESSION: Nondisplaced calcaneal fracture.
[2023-02-06] MEDS ORDERED: HYDROmorphone 1 MG/ML 1 ML SYRINGE IM STA (00:26)
[2023-02-06] MEDS ORDERED: LORazepam 2 MG/ML INJ IV STA (01:16)
[2023-02-06] MEDS ORDERED: ACETAMINOPHEN TAB 500 MG TAB PO STA (01:18)
[2023-02-06] MEDS ORDERED: IBUPROFEN 600 MG STARTER PACK 4 TAB BTL PO STA (01:37)
[2023-02-06] MEDS ORDERED: ACET/COD 300 MG/30 MG STARTER PACK 6 TAB BTL PO STA (01:37)
[2023-02-06] MEDS ORDERED: HYDROcodone/APAP 7.5-325MG 1 EACH TAB PO ONE (02:01)
[2023-02-06 02:21] VITALS: BP 120/96; PULSE 86; RESP 18
== END 2023-02-06 02:21 | disposition home or self-care (01) ==
LOC: EC 22:54
DX: S92.001A Unspecified fracture of right calcaneus, initial encounter for closed fracture (principal); F17.200 Nicotine dependence, unspecified, uncomplicated; F12.90 Cannabis use, unspecified, uncomplicated; W22.8XXA Striking against or struck by other objects, initial encounter
CPT/HCPCS: 99283; 29515; 96374; 96372 ×3; 73590; 73630; 73650; J2270

== ENCOUNTER 2025-02-07 11:00 | Emergency (ER) | payer OTHER ==
[2025-02-07 11:05] VITALS: BP 122/84; PULSE 93; RESP 22; TEMP 99.2
--- NOTE | 2025-02-07 11:33 | ED ---
URI HPI - General Source: patient, RN notes reviewed Mode of arrival: ambulatory Limitations: no limitations <Alirio Graves - Last Filed: 02/07/25 11:32> <Mackenzie Aguirre - Last Filed: 02/07/25 12:36> - General Chief Complaint: Upper Respiratory Infection Stated Complaint: chest pain Time Seen by Provider: 02/07/25 11:16 - History of Present Illness Initial Comments: Quick note: This is a 34-year-old male presenting with sick symptoms x 5 days. Patient endorses cough, congestion and sore throat. Also endorses occasional left-sided chest pain that worsens with cough/deep inhalation and subjective fever. Denies recent sick contacts or [id number] medication use. Denies radiating chest pain, dizziness, sweating, pallor, AMS, ALOC. (Alirio Graves) - Related Data Previous Rx's Medication Instructions Recorded Ibuprofen [Motrin] 600 mg PO Q8HR PRN #20 tab 01/02/21 Ibuprofen [Motrin] 600 mg PO Q8HR PRN #24 tab 06/07/21 LORazepam [Ativan] 1 mg PO TID PRN 3 Days #9 tab 01/17/23 HYDROcodone/APAP 5-325MG [[place] 1 tab PO Q6HR PRN 3 Days #12 tab 02/06/23 5-325] Ibuprofen 600 mg PO Q6H PRN #20 tab 02/06/23 Allergies Allergy/AdvReac Type Severity Reaction Status Date / Time No Known Allergies Allergy Verified 02/07/25 11:05 Review of Systems ROS Other: All systems not noted in ROS Statement are negative. <Alirio Graves - Last Filed: 02/07/25 11:32> ROS Other: All systems not noted in ROS Statement are negative. <Mackenzie Aguirre - Last Filed: 02/07/25 12:36> ROS Statement: Those systems with pertinent positive or pertinent negative responses have been documented in the HPI. Past Medical History Past Medical History: No Reported History History of Any Multi-Drug Resistant Organisms: None Reported Past Surgical History: No Surgical Hx Reported Past Psychological History: ADD/ADHD Smoking Status: Current every day smoker Past Alcohol Use History: Occasional Past Drug Use History: Marijuana <Alirio Graves - Last Filed: 02/07/25 11:32> General Exam Limitations: no limitations <Alirio Graves - Last Filed: 02/07/25 11:32> - General Exam Comments Initial Comments: Visual Physical Exam Vital signs reviewed General: Well-appearing, nontoxic, no acute distress. Head: Normocephalic, atraumatic Eyes: PERRLA, EOMI ENT: Airway patent Chest: Nonlabored breathing Skin: No visual rash, normal skin tone Neuro: Alert and oriented 3 Musculoskeletal: No gross abnormalities (Alirio Graves) Course Vital Signs 02/07/25 11:03 Temperature 99.2 F Pulse Rate 93 Respiratory 22 Rate Blood Pressure 122/84 O2 Sat by Pulse 98 Oximetry Medical Decision Making <Alirio Graves - Last Filed: 02/07/25 11:32> - Medical Decision Making I completed the quick note portion of this chart signed BAN Cordova (Alriio Graves) - Lab Data Lab Results 02/07/25 Range/Units 11:08 Influenza Type A (PCR) Not Detected (Not Detectd) Influenza Type B (PCR) Not Detected (Not Detectd) RSV (PCR) Not Detected (Not Detectd) SARS-CoV-2 (PCR) Not Detected (Not Detectd) Disposition <Alirio Graves - Last Filed: 02/07/25 11:32> Is patient prescribed a controlled substance at d/c from ED?: No Time of Disposition: 12:36 <Mackenzie Aguirre - Last Filed: 02/07/25 12:36> Clinical Impression: Acute viral sinusitis Disposition: HOME SELF-CARE Condition: Stable Instructions (If sedation given, give patient instructions): How to Stop Smoking (ED) Additional Instructions: You may alternate [id number] ibuprofen and Tylenol for symptom control outpatient. Follow-up with PCP. Return to the ER for any new or worsening concerns. Referrals: None,Stated [Primary Care Provider] - 1-2 days Forms: Area PCPs
--- NOTE | 2025-02-07 11:41 | XR ---
EXAMINATION TYPE: XR chest 2V DATE OF EXAM: 02/07/2025 11:22 AM COMPARISON: 01/02/21 CLINICAL INDICATION: Male, 34 years old with history of Pain, TECHNIQUE: Frontal and lateral views of the chest are obtained. FINDINGS: There is no focal air space opacity, pleural effusion, or pneumothorax seen. The cardiac silhouette size is within normal limits. The osseous structures are intact. IMPRESSION: No acute cardiopulmonary process. [facility], , 02/07/2025 11:39 AM
[2025-02-07 11:50] LABS: Influenza A Not Detected (Not Detectd); Influenza B Not Detected (Not Detectd); RSV Not Detected (Not Detectd)
[2025-02-07] MEDS: IBUPROFEN 600 MG TAB PO STA (12:31)
[2025-02-07] MEDS: ACETAMINOPHEN TAB 325 MG TAB PO STA (12:32)
== END 2025-02-07 12:41 | disposition home or self-care (01) ==
LOC: EC 11:00
DX: J01.90 Acute sinusitis, unspecified (principal); B97.89 Other viral agents as the cause of diseases classified elsewhere; F17.200 Nicotine dependence, unspecified, uncomplicated
CPT/HCPCS: 71046; 87636; 99285